=== PATIENT | male | born 1960 | race Caucasian/White ===

== ENCOUNTER 2020-06-02 02:29 | Emergency (ER) | payer OTHER ==
[~2020-06-02] VITALS: Ht 185.4 cm; Wt 120.0 kg
[2020-06-02 02:53] LABS: BASOPHILS % (AUTO) 1 % (0-1); EOSINOPHILS % (AUTO) 3 % (1-7); LYMPHOCYTES % (AUTO) 14 % (22-44); MEAN CORPUSCULAR HEMOGLOBIN 33.1 pg (27.5-34.5); MEAN CORPUSCULAR HGB CONC 34.3 g/dL (33.2-36.2); MEAN PLATELET VOLUME 7.4 fL (7.4-10.4); MONOCYTES % (AUTO) 13 % (2-9); NEUTROPHILS % (AUTO) 69 % (42-75); PLATELET COUNT 168 x10^3/uL (130-400); RED BLOOD COUNT 4.82 x10^6/uL (4.38-5.82); RED CELL DISTRIBUTION WIDTH 13.8 % (9.4-14.8)
[2020-06-02 02:54] LABS: MD NO
[2020-06-02] MEDS ORDERED: MORPHINE SULFATE 4 MG/ML, 1ML IVPush PRN (03:00)
[2020-06-02] MEDS ORDERED: SODIUM CHLORIDE FLUSH 10ML SYR IVF ONE (03:00)
[2020-06-02] MEDS ORDERED: ONDANSETRON 2MG/ML, 2ML IVPush ONE (03:00)
[2020-06-02] MEDS ORDERED: ASPIRIN 81 MG TABLET CHEW PO ONE (03:00)
[2020-06-02 03:05] LABS: ALANINE AMINOTRANSFERASE 22 U/L (12-78); ALBUMIN 3.4 g/dL (3.4-5.0); ANION GAP 7 mmol/L (5-15); CALCIUM 8.6 mg/dL (8.5-10.1); CHLORIDE 106 mmol/L (98-107); CREATININE 1.21 mg/dL (0.7-1.3)
[2020-06-02] MEDS ORDERED: NITROGLYCERIN SINGLE TAB 0.4 MG SL ONE ×2 (03:06→06:01)
[2020-06-02] MEDS ORDERED: ONDANSETRON 2MG/ML, 2ML ONE (03:06)
[2020-06-02] MEDS ORDERED: MORPHINE SULFATE 4 MG/ML, 1ML ONE (03:07)
[2020-06-02] MEDS ORDERED: ASPIRIN 81 MG TABLET CHEW ONE (03:07)
[2020-06-02 03:10] LABS: ALKALINE PHOSPHATASE 67 U/L (45-117); BILIRUBIN,TOTAL 0.5 mg/dL (0.2-1.0); TROPONIN I < 0.015 ng/mL (0.000-0.045)
[2020-06-02] MEDS: NITROGLYCERIN SINGLE TAB 0.4 MG SL PRN ×2 (03:15→03:20)
--- NOTE | 2020-06-02 03:15 | NUR ---
PT. TO ED WITH C/O SUDDEN ONSET CENTRAL CP RADIATING DOWN TO LUQ ABD. PT. DOES REPORT USING COCAINE TODAY AND A FEW DAYS AGO. EKG WAS DONE IN TRIAGE. PT. HYPERTENSIVE AND TACHYCARDIC. B/P'S TAKEN ON BOTH ARMS. HEART RATE 120'S-140'S. SINUS ON MONITOR. CONTINUOUS PULSE OX, B/P, AND HEART MONITORS PLACED. SON AT FOR SUPPORT. IV ESTABLISHED AND PT. MEDICATED PER MAY. ANA CHAVEZ IN TO EVAL PT AND DISCUSS POC. PT. REPORTS HX OF HTN AND HAS BEEN OFF B/P MEDS FOR ABOUT 8 DAYS. CALL LIGHT IN REACH. ALL SAFETY MEASURES OBSERVED.
[2020-06-02] MEDS ORDERED: LOSARTAN 100 MG TAB PO STA (03:17)
[2020-06-02] MEDS ORDERED: CARVEDILOL 12.5 MG TABLET PO STA (03:17)
[2020-06-02] MEDS ORDERED: FUROSEMIDE 40 MG/4 ML IV ONE (03:30)
[2020-06-02] MEDS ORDERED: CARVEDILOL 12.5 MG TABLET ONE (03:40)
[2020-06-02] MEDS ORDERED: FUROSEMIDE 40 MG/4 ML ONE (03:43)
--- NOTE | 2020-06-02 03:58 | NUR ---
PT TO CT WILL MEDICATE WHEN RETURNS.
--- NOTE | 2020-06-02 04:19 | NUR ---
PT. RETURN FROM CT.
[2020-06-02] MEDS ORDERED: LABETALOL 5MG/ML, 20ML IVPush STA (04:43)
--- NOTE | 2020-06-02 04:45 | NUR ---
AT PT BEDSIDE. PT SITTING UPRIGHT FOR CONFORT AND URINAL CLOSE BY WITH LASIX ADMINISTRATIN. PT PAIN WITH BREATHING AT 5/10, REFUSES MORPHINE FOR PAIN AT THIS MOMENT.
[2020-06-02] MEDS ORDERED: LABETALOL 5MG/ML, 20ML ONE (05:03)
[2020-06-02] MEDS ORDERED: LORazepam 2 MG/ML, 1ML ONE (05:03)
--- NOTE | 2020-06-02 05:08 | NUR ---
PT. BECOMING TREMULOUS AND SOMEWHAT AGITATED. PER PT. AND SON PT. DRINKS HEAVILY. NEW ORDER FOR ATIVAN.
[2020-06-02] MEDS ORDERED: OMNIPAQUE 350 MG/ML, 100ML BOTTLE ONE (05:09)
[2020-06-02] MEDS ORDERED: LORazepam 2 MG/ML, 1ML IVPush ONE (05:30)
--- NOTE | 2020-06-02 05:40 | NUR ---
PT SPOKE WITH DOCTOR ABOUT BEING ADMITTED. PT WANTING TO LEAVE BUT SON INSITING ON STAYING AND GETTING ADMITTED AND FIND OUT WHAT IS CAUSING HIS BREATHING PAIN. SON CONCEREDED ABOUT O2 SATURATIN OFF OXYGEN.
--- NOTE | 2020-06-02 05:54 | NUR ---
PT URINATED 1000ML SINCE LASIX GIVEN UNTIL 0550 AND EMPTIED. URINE CLEAR YELLOW.
[2020-06-02] MEDS ORDERED: NITROGLYCERIN OINT 2%, 1GM TP ONE ×2 (05:59→06:00)
[2020-06-02] MEDS ORDERED: ENOXAPARIN 120MG/0.8ML SQ ONE (06:00)
--- NOTE | 2020-06-02 06:01 | NUR ---
VS CHARTED AT 0551 ENTERED ON WRONG PT.
[2020-06-02] MEDS ORDERED: ONDANSETRON ODT 4 MG PO PRN (06:30)
[2020-06-02] MEDS ORDERED: OMEPRAZOLE 20 MG CAPSULE.DR PO ONE (06:30)
[2020-06-02] MEDS ORDERED: ONDANSETRON 2MG/ML, 2ML IVPush PRN (06:30)
[2020-06-02] MEDS ORDERED: hydrALAzine 20 MG/ML, 1ML IVPush PRN (06:30)
[2020-06-02] MEDS ORDERED: ENALAPRILAT 1.25 MG/ML, 2ML IVPush PRN (06:30)
[2020-06-02] MEDS ORDERED: morphine SULFATE 10 MG/ML, 1ML IVPush PRN (06:30)
[2020-06-02] MEDS ORDERED: ACETAMINOPHEN 325 MG TABLET PO PRN (06:30)
[2020-06-02 06:39] VITALS: BP 141/86
[2020-06-02 06:46] LABS: INTERNATIONAL NORMALIZED RATIO 1.01 (0.93-1.1); PROTHROMBIN TIME 10.8 Seconds (9.6-11.5)
--- NOTE | 2020-06-02 06:46 | NUR ---
REPORT GIVEN TO SRIDHAR ROGEL. FLOOR READY FOR PATIENT TRANSPORT.
[2020-06-02 07:29] LABS: TROPONIN I < 0.015 ng/mL (0.000-0.045)
--- NOTE | 2020-06-02 07:32 | NUR ---
Late entry: pt refused to be admitted to floor without son. Reiterated visiting policy and assessed for underlying caregiver needs. None identified. Stated we would allow son to go up with him to get him settled and he could come back at visiting hours. Pt agitated and refusing to stay. Expressed concern for son staying in truck. Asked if he would allow me to help get him a discounted room at [facility]. Son and patient said it was non negotiable that he either have his son stay the whole time or he will leave. Pt signed AMA. IV and nitro paste removed. Pt refusing to change out of gown and into clothes. Throughput placed call to hospitalist. Pt walked to discharge desk.
[2020-06-03] MEDS ORDERED: ASPIRIN 325 MG TABLET EC PO SCH (06:00)
== END 2020-06-02 07:48 | disposition other institution (70) ==
LOC: ED 06:06 → SUATTDRO 06:24 → EDIP 06:59 → UNDOADMIN 06:59 → ED 07:48
PROVIDERS: ATTEND Hospitalist
DX: R07.2 Precordial pain (principal); I48.91 Unspecified atrial fibrillation; I11.0 Hypertensive heart disease with heart failure; I50.9 Heart failure, unspecified; I16.9 Hypertensive crisis, unspecified
CPT/HCPCS: 36415; 71045; 71275; 74174; 80053; 83735; 83880; 84484; 85025; 85610; 85730; 93005; 96372; 96374; 96375; 99285; J1650; J1940; J2060; J2270; J2405; Q9967